=== PATIENT | male | born 2000 | race Caucasian/White ===

== ENCOUNTER 2018-12-03 21:56 | Emergency (ER) | payer OTHER ==
[~2018-12-03] VITALS: Ht 170.2 cm; Wt 63.5 kg
[2018-12-03] MEDS ORDERED: SODIUM CHLORIDE 0.9% 1,000 ML IV ONE (22:30)
[2018-12-03 22:52] LABS: Basophils # (auto) 0.1 uL; Basophils % (auto) 0.5 % (0.0-2.0); Eosinophils # (auto) 0.4 uL; Eosinophils % (auto) 2.9 % (0.0-7.0); Hematocrit 40.3 % (41.0-53.0); Hemoglobin 13.9 g/dL (13.5-17.5); Lymphocytes # (auto) 2.5 uL; Mean Corpuscular Hgb Conc. 34.5 g/dL (32.0-36.0); Mean Corpuscular Volume 92.7 fL (80.0-100.0); Monocytes # (auto) 0.9 uL; Monocytes % (auto) 6.9 % (0.0-12.0); Neutrophils # (auto) 9.4 uL; Neutrophils % (auto) 70.7 % (37.0-80.0); Platelet Count (auto) 304 10^3/uL (140-450); Red Blood Cells 4.35 10^6/uL (4.5-5.90); Red Cell Distribution Width 12.3 % (11.8-14.3); White Blood Cell 13.3 10^3/uL (4.4-10.8)
[2018-12-03 23:10] LABS: Albumin 3.9 g/dL (3.4-5.0); Calcium 8.5 mg/dL (8.5-10.1); Potassium 4.2 mmol/L (3.5-5.1)
[2018-12-03 23:11] LABS: Acetaminophen < 2.0 ug/mL (10-30); Salicylate < 1.7 mg/dL (2.8-20.0)
[2018-12-03 23:22] LABS: Bilirubin, Total 0.3 mg/dL (0.2-1.0); Total Protein 7.3 g/dL (6.4-8.2)
[2018-12-04 00:03] LABS: Urine Amorphous Crystal FEW /hpf (None Seen); Urine Bacteria FEW /hpf (None Seen); Urine Blood Negative /uL (Negative); Urine Hyaline Cast FEW /lpf (0 - 2); Urine Mucus FEW (None Seen); Urine Specific Gravity 1.022 (1.001-1.035); Urine WBC <1 /hpf (0 - 3)
[2018-12-04 00:04] LABS: Alcohol, Urine < 3.0 mg/dL (0-5); Amphetamine Screen, Urine NEGATIVE (NEGATIVE); Barbiturate Scree,Urine NEGATIVE (NEGATIVE); Benzodiazephine Screen, Urine NEGATIVE (NEGATIVE); Cannabinoid Screen, Urine NEGATIVE (NEGATIVE); Cocaine Screen, Urine NEGATIVE (NEGATIVE); Opiate Scree,Urine POSITIVE (NEGATIVE); Phencyclidine Screen, Urine NEGATIVE (NEGATIVE)
[2018-12-04 00:53] VITALS: BP 99/71
== END 2018-12-04 02:11 | disposition home or self-care (01) ==
LOC: ER 22:00
DX: T65.91XA Toxic effect of unspecified substance, accidental (unintentional), initial encounter (principal); Y92.89 Other specified places as the place of occurrence of the external cause
CPT/HCPCS: 36415; 80053; 80307; 80329; 81001; 85025; 99283; J7030

== ENCOUNTER 2025-05-30 23:46 | Emergency (ER) | payer MEDICAID, OTHER ==
[~2025-05-30] VITALS: Ht 172.7 cm; Wt 73.2 kg
--- NOTE | 2025-05-31 01:59 | DVH ---
ULTRASOUND SCROTUM CLINICAL INDICATION: swelling TECHNIQUE: High resolution scrotal ultrasound was performed with a linear transducer with duplex dopp ler and loan representative images acquired. Color Doppler with spectral analysis was performed/attempted of the testes. COMPARISON: None FINDINGS: Right testicle: Normal in size, measuring 4.5 x 2.6 x 4.1 cm. The testicular parenchyma is homogeneou s. No testicular mass. Normal intratesticular blood flow. The right epididymis appears normal. Left testicle: Normal in size, measuring 5.1 x 2.5 x 4.3 cm. The testicular parenchyma is homogeneous . No testicular mass. Normal intratesticular blood flow. The left epididymis appears normal. Large left hydrocele with particulate debris. IMPRESSION: Large left hydrocele with particulate debris which could be from prior infection or hemorrhage. No evidence of testicular torsion.
[2025-05-31 02:27] LABS: Urine Protein, UAD Negative (Negative)
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
[2025-05-31 02:50] VITALS: BP 120/76; PULSE 85; RESP 16; TEMP 98.7; O2SAT 98
== END 2025-05-31 03:45 | disposition home or self-care (01) ==
LOC: ER 23:46
DX: N43.3 Hydrocele, unspecified (principal)
CPT/HCPCS: 76870; 81001